=== PATIENT | male | born 1945 | race Caucasian/White ===

== ENCOUNTER 2017-02-27 23:23 | Emergency (ER) | payer MEDICARE, OTHER ==
--- NOTE | 2017-02-27 23:35 | ED Physician Documentation ---
PD HPI ABD PAIN - Stated complaint Stated Complaint: RT FLANK PAIN - Chief complaint Chief Complaint: Abd Pain - History obtained from History obtained from: Patient - History of Present Illness Timing - onset: Enter time (1600), Today Timing - duration: Hours Timing - details: Gradual onset, Still present Quality: Sharp, Pain Location: RUQ Radiation: , Right flank Improved by: Other (nothing) Worsened by: Other (nothing) Associated symptoms: Nausea. No: Fever, Vomiting, Diarrhea, Constipation Similar symptoms before: No diagnosis (had symptoms last week lasting half a day and resolving) Recently seen: Not recently seen - Additional information Additional information: 71 y/o male standing and minding his own business when he had the sudden onset of right flank pain that radiates across his abdomen and into his groin. He did have some pain with urination today and he did not have pain with obtaining a sample. Review of Systems Constitutional: denies: Fever Ears: denies: Ear pain Nose: denies: Congestion Throat: denies: Sore throat Cardiac: denies: Chest pain / pressure, Palpitations Respiratory: denies: Dyspnea, Cough GI: reports: Abdominal Pain, Nausea. denies: Vomiting, Constipation, Diarrhea : reports: Dysuria. denies: Frequency Skin: denies: Rash Musculoskeletal: reports: Back pain. denies: Neck pain, Extremity pain Neurologic: denies: Generalized weakness, Focal weakness PD PAST MEDICAL HISTORY - Present Medications Home Medications: Ambulatory Orders Medication Instructions Recorded Confirmed HYDROcod/ACETAM 5/325 [[place] 5/325] 1 - 2 ea PO Q6H PRN #15 tablet 02/28/17 - Allergies Allergies/Adverse Reactions: Allergies Allergy/AdvReac Type Severity Reaction Status Date / Time No Known Drug Allergies Allergy Verified 02/27/17 23:33 PD ED PE NORMAL - Vitals Vital signs reviewed: Yes (hypertensive ) - General General: Alert and oriented X 3, Well developed/nourished, Other (71 y/o male appears uncomfortable ) - HEENT HEENT: Atraumatic, PERRL - Neck Neck: Supple, no meningeal sign - Cardiac Cardiac: RRR, No murmur - Respiratory Respiratory: No respiratory distress, Clear bilaterally - Abdomen Abdomen: Normal bowel sounds, Soft, Non tender - Back Back: No CVA TTP, No spinal TTP - Derm Derm: Normal color, Warm and dry, No rash - Extremities Extremities: No deformity, No edema - Neuro Neuro: No motor deficit, No sensory deficit - Psych Psych: Normal mood, Normal affect Results - Vitals Vitals: Vital Signs - 24 hr 02/27/17 02/28/17 23:27 00:27 Temperature 36.8 C Heart Rate 82 71 Respiratory 24 18 Rate Blood Pressure 148/81 H 144/71 H O2 Saturation 97 95 Oxygen O2 Source Room air - Labs Labs: Laboratory Tests 02/27/17 02/27/17 02/27/17 23:40 23:50 23:50 WBC 12.4 H RBC 5.04 Hgb 15.1 Hct 44.2 MCV 87.7 MCH 29.8 MCHC 34.0 RDW 13.3 Plt Count 177 MPV 8.9 Neut # 8.6 H Lymph # 2.3 Motley # 1.2 H Eos # 0.2 Baso # 0.1 Absolute Nucleated RBC 0.00 Nucleated RBCs 0.0 Sodium 139 Potassium 3.9 Chloride 108 Carbon Dioxide 25 Anion Gap 6.0 BUN 23 H Creatinine 1.3 H Estimated GFR (MDRD) 55 L Glucose 106 H Calcium 8.8 Total Bilirubin 0.4 AST 23 ALT 24 Alkaline Phosphatase 67 Total Protein 6.9 Albumin 4.1 Globulin 2.8 Albumin/Globulin Ratio 1.5 Lipase 16 L Urine Color YELLOW Urine Clarity CLEAR Urine pH 7.5 Ur Specific Jachin 1.020 Urine Protein 30 H Urine Glucose (UA) NEGATIVE Urine Ketones NEGATIVE Urine Occult Blood MODERATE H Urine Nitrite NEGATIVE Urine Bilirubin NEGATIVE Urine Urobilinogen 0.2 (NORMAL) Ur Leukocyte Esterase NEGATIVE Urine RBC 11-25 H Urine WBC 0-3 Ur Squamous Epith Cells NONE SEEN Urine Bacteria Rare Ur Microscopic Review INDICATED Urine Culture Comments NOT INDICATED - Rads (name of study) CT abdomen and pelvis without Radiology: Prelim report reviewed (Impression: 1. Moderately obstructing 6 x 4 mm right vesicoureteral junction stone.), EMP read indepedently, See rad report Procedures - Bedside sono Bedside sono by EMP: with the use of bedside ultrasound the right kidney is examined and is sonographically non-tender and has moderate hydro. - IVC sono (time) 2350 Bedside IVC sono: IVC measures (cm), IVC collapsed c insp (cm) (complete), Dehydration PD MEDICAL DECISION MAKING - ED course Complexity details: reviewed old records, reviewed results, re-evaluated patient , considered differential, d/w patient, d/w family ED course: 71 y/o male with scant prior medical history has developed acute right flank pain and has an obstructing stone at the UVJ on the right. He is found to be dehydrated on interrogation of the IVC and he is given IV saline and toradal with resolution of his pain. Departure - Departure Disposition: 01 Home, Self Care Clinical Impression: Ureterolithiasis Condition: Stable Instructions: ED Stone Renal W Colic Follow-Up: Everett Rivas DO [Primary Care Provider] - Prescriptions: HYDROcod/ACETAM 5/325 [[place] 5/325] 1 - 2 ea PO Q6H PRN #15 tablet PRN Reason: Pain
[2017-02-27 23:42] LABS: BILIRUBIN,URINE NEGATIVE (NEGATIVE); PH,URINE 7.5 PH (5.0-7.5)
[2017-02-27 23:44] LABS: UA w/ MICROSCOPIC CHARGE YES
[2017-02-27 23:52] LABS: UR CULTURE IF IND NOT INDICATED; WBC,URINE 0-3 /HPF (0-3)
[2017-02-27] MEDS ORDERED: KETOROLAC 60 MG/2 ML VIAL IVP STA (23:54)
[2017-02-27] MEDS ORDERED: KETOROLAC 30 MG/ML VIAL ONE (23:54)
[2017-02-28 00:06] LABS: BASOPHILS # (AUTO) 0.1 10^3/uL (0.0-0.1); BASOPHILS % (AUTO) 1.1 %; EOSINOPHILS # (AUTO) 0.2 10^3/uL (0.0-0.7); EOSINOPHILS % (AUTO) 1.5 %; HCT - HEMATOCRIT 44.2 % (42.0-52.0); HGB - HEMOGLOBIN 15.1 g/dL (14.0-18.0); LYMPHOCYTES # (AUTO) 2.3 10^3/uL (1.5-3.5); LYMPHOCYTES % (AUTO) 18.5 %; MEAN CORPUSCULAR HEMOGLOBIN 29.8 pg (27.0-31.0); MEAN CORPUSCULAR VOLUME 87.7 fL (80.0-94.0); MEAN PLATELET VOLUME 8.9 fL (7.4-11.4); MONOCYTES # (AUTO) 1.2 10^3/uL (0.0-1.0); MONOCYTES % (AUTO) 9.6 %; NEUTROPHILS # (AUTO) 8.6 10^3/uL (1.5-6.6); NEUTROPHILS % (AUTO) 69.3 %; RED BLOOD COUNT 5.04 10^6/uL (4.70-6.10); RED CELL DISTRIBUTION WIDTH 13.3 % (12.0-15.0); UNCORRECTED WHITE BLOOD COUNT 12.4 x10^3/uL; WHITE BLOOD COUNT 12.4 x10^3/uL (4.8-10.8)
[2017-02-28 00:18] LABS: ALBUMIN/GLOBULIN RATIO 1.5 (1.0-2.2); BILIRUBIN,TOTAL 0.4 mg/dL (0.2-1.0); CALCIUM 8.8 mg/dL (8.5-10.3); CREATININE 1.3 mg/dL (0.6-1.2); POTASSIUM 3.9 mmol/L (3.5-5.0); TOTAL PROTEIN 6.9 g/dL (6.7-8.2)
--- NOTE | 2017-02-28 00:45 | CT Preliminary Report ---
Exam: CT Abdomen/Pelvis W/O IMPRESSION: 1. Moderately obstructing 6 x 4 mm right vesicoureteral junction stone. [facility] SITE ID: [id number]
--- NOTE | 2017-02-28 00:47 | CT Report ---
EXAM: CT ABDOMEN AND PELVIS (CT KUB) EXAM DATE: 02/28/2017 12:23 AM. CLINICAL HISTORY: Right flank pain/hydro on bedside. COMPARISONS: None. TECHNIQUE: Routine axial helical CT imaging was performed through the abdomen and pelvis without IV c ontrast. Reconstructions: Coronal and sagittal. In accordance with CT protocol optimization, one or more of the following dose reduction techniques w ere utilized for this exam: automated exposure control, adjustment of mA and/or KV based on patient s ize, or use of iterative reconstructive technique. FINDINGS: Lung Bases: Normal. Right Kidney/Ureter: There is a 6 x 4 mm stone at the right vesicoureteral junction resulting in mode rate hydronephrosis and ureteral dilatation. There is fairly extensive perinephric stranding. No dylan tional stones seen. Left Kidney/Ureter: No stones, hydronephrosis, or hydroureter. No perinephric fat stranding. Other Solid Organs: Several liver cysts noted. The unenhanced pancreas, spleen and adrenal glands are unremarkable. Gallbladder/Bile Ducts: Unremarkable. Peritoneal Cavity: No free fluid, free air or valerie adenopathy. Bowel is grossly unremarkable. Pelvic Organs: No bladder stones or wall thickening. Noncontrast images of the visualized pelvic orga ns are unremarkable. Vasculature: Unremarkable. Other: None. IMPRESSION: 1. Moderately obstructing 6 x 4 mm right vesicoureteral junction stone. [facility] Referring Provider Line: [phone] SITE ID: [id number]
[2017-02-28] MEDS ORDERED: HYDROcod/ACET 5/325 Prepack 6 PO ONE ×2 (00:49)
[2017-02-28 01:05] VITALS: BP 130/86
== END 2017-02-28 01:03 | disposition home or self-care (01) ==
LOC: ED 23:23
DX: N13.2 Hydronephrosis with renal and ureteral calculous obstruction (principal); E86.0 Dehydration
CPT/HCPCS: 36415; 74176; 80053; 81001; 81003; 83690; 85025; 87086; 96374; 99284; 99285

== ENCOUNTER 2021-10-07 10:25 | Outpatient (CLI) | payer MEDICARE, OTHER ==
--- NOTE | 2021-10-07 11:16 | CARDIAC PROCEDURE NOTE ---
Stress Test Report Service Date: 10/07/21 Service Time: 11:00 Ordering Provider: Everett Rivas D.O. Indication for Test: Assess typical exertional anginal chest and left arm discomfort. Significant Medical History: -Nikhil reports that as of last summer he was able to walk up to 2-1/2 miles with good tolerance but that starting this spring he began to notice difficulty with exertion that has included central substernal chest discomfort with radiation to his left arm, sometimes with associated arm numbness, and shortness of breath. The threshold for symptom onset has decreased to the point where he is now only walking back and forth to his mailbox which is an approximate 600 foot round trip. He is still experiencing symptoms with this markedly diminished level of exercise. He denies associated symptoms such as diaphoresis, palpitations or lightheadedness. His discomfort resolves with a few minutes of rest and he has not experienced any resting symptoms. Cardiac Risk Factors: Nikhil reports history of treated hypertension for at least 20 years, with statin treatment for a period of time (though not taking currently). He is a nonsmoker, without diabetes and he is not aware of close relatives with history of ischemic heart disease. Type of Stress Test: ETT with Echocardiography Procedure: -Exercise Treadmill Test- After signing informed consent, the patient underwent resting echo imaging and then performed treadmill exercise using a Modified [place] protocol. The patient exercised for 7 minutes 16 seconds and achieved a peak heart rate of 117 (79 percent predicted maximum heart rate for age), and an estimated workload of 4.3 METS. The test was terminated due to chest pain that occurred before achieving target heart rate, associated with ST depression. Resting heart rate: 68 Peak heart rate: 117 Normal response to exercise. Resting BP: 139/88 Peak BP: 172/78 Normal BP response to exercise. Rhythm during exercise: Sinus with occasional isolated premature atrial complexes. Symptoms: Patient developed his typical angina and left arm discomfort, to level of severity of "8" of "10" at peak exercise; in recovery the discomfort rapidly decreased (4-5 of 10) and following administration of SL NTG within 2 minutes the discomfort was fully resolved. EKG at rest showed normal sinus rhythm and normal in all aspects. EKG at peak stress showed horizontal ST depression in leads II, V4, V5 and V6 of at least 1.4 mm, meeting diagnostic criteria for ischemia. In Recovery heart rate and blood pressure rapidly and normally returned to re sting levels. Echo imaging performed at rest and with stress revealed normal left ventricular size and systolic function, with no evidence of prior infarct or inducible ischemia. See separate report for more detail. IShaun MD, was present throughout this treadmill stress study and supervised it in its entirety. Summary: 1) Exercise tolerance probably mildly reduced for age as evidenced by attainment of 4.2 METS; TAMIKO not available for the modified [place] protocol. 2) Normal resting EKG. 3) Adequate level of exercise was achieved on this treadmill stress test. 4) Normal BP response to exercise. 5) Ischemic changes by EKG criteria were seen at peak stress. 6) Echo image interpretation did not reveal evidence of prior infarct or inducible ischemia, suggesting area at risk may be small. CONCLUSIONS: 1) Abnormal modified [place] protocol ETT, with recreation of anginal symptoms and ST depression meeting diagnostic criteria for ischemia. 2) Angina decreased with rest and was completely resolved within 2 minutes of administration of a single SL NTG tablet. Patient was provided with the opened NTG bottle and instructed in its use. 3) Findings discussed with referring provider Dr Rivas following test conclusion. Initiation of ASA 81 mg daily, re-initiation of statin, additional anti-ischemic therapy and Cardiology referral recommended.
[2021-10-07] MEDS ORDERED: NITROGLYCERIN SL 0.4 MG TABLET SL ONE (12:22)
== END 2021-10-07 10:26 | disposition home or self-care (01) ==
LOC: DI 10:25
PROVIDERS: ATTEND Family Medicine
DX: I20.8 Other forms of angina pectoris (principal); I10 Essential (primary) hypertension
CPT/HCPCS: 93016; 93017; 93018; 93350; A9270

== ENCOUNTER 2024-03-07 15:15 | Outpatient (CLI) | payer MEDICARE, OTHER ==
[2024-03-07 17:35] LABS: BASOPHILS # (AUTO) 0.1 10^3/uL (0.0-0.1); BASOPHILS % (AUTO) 0.8 %; EOSINOPHILS # (AUTO) 0.1 10^3/uL (0.0-0.7); EOSINOPHILS % (AUTO) 2.3 %; HCT - HEMATOCRIT 50.1 % (42.0-52.0); HGB - HEMOGLOBIN 16.1 g/dL (14.0-18.0); LYMPHOCYTES # (AUTO) 1.8 10^3/uL (1.5-3.5); LYMPHOCYTES % (AUTO) 28.8 %; MEAN CORPUSCULAR HEMOGLOBIN 30.1 pg (27.0-31.0); MEAN CORPUSCULAR HGB CONC 32.1 g/dL (32.0-36.0); MEAN CORPUSCULAR VOLUME 93.8 fL (80.0-94.0); MEAN PLATELET VOLUME 11.1 fL (7.4-11.4); MONOCYTES # (AUTO) 0.5 10^3/uL (0.0-1.0); MONOCYTES % (AUTO) 8.1 %; NEUTROPHILS # (AUTO) 3.6 10^3/uL (1.5-6.6); NEUTROPHILS % (AUTO) 59.8 %; PLT - PLATELET COUNT 157 10^3/uL (130-450); RED BLOOD COUNT 5.34 10^6/uL (4.70-6.10); WHITE BLOOD COUNT 6.1 x10^3/uL (4.8-10.8)
[2024-03-07 17:48] LABS: ALBUMIN/GLOBULIN RATIO 1.5 (1.0-2.2); BILIRUBIN,TOTAL 0.8 mg/dL (0.2-1.0); CALCIUM 9.6 mg/dL (8.5-10.3); CREATININE 0.8 mg/dL (0.6-1.3); POTASSIUM 4.6 mmol/L (3.5-4.5); TOTAL PROTEIN 6.6 g/dL (6.4-8.9)
[2024-03-07 18:03] LABS: THYROID STIMULATING HORMONE 1.38 uIU/mL (0.34-5.60)
== END 2024-03-07 15:30 | disposition home or self-care (01) ==
LOC: LAB.N 15:15
PROVIDERS: ATTEND Physician Assistant Medical
DX: R42 Dizziness and giddiness (principal); R25.1 Tremor, unspecified
CPT/HCPCS: 36415; 80053; 84443; 85025